=== PATIENT | female | born 1950 | race Caucasian/White ===

== ENCOUNTER 2020-10-25 16:23 | Emergency (ER) | payer MEDICAID, MEDICARE ==
[~2020-10-25] VITALS: Ht 162.6 cm; Wt 113.6 kg
[~2020-10-25 16:23] MED LIST: FURO-150 PO
[2020-10-25 17:37] LABS: BASOPHILS # (AUTO) 0.1 X10'3 (0-0.2); BASOPHILS % (AUTO) 0.9 % (0-1); EOSINOPHILS # (AUTO) 0.1 X10'3 (0-0.9); EOSINOPHILS % (AUTO) 2.1 % (0-6); HEMATOCRIT 33.1 % (35.0-45.0); HEMOGLOBIN 10.8 g/dl (12.0-16.0); LYMPHOCYTES # (AUTO) 1.7 X10'3 (1.1-4.8); LYMPHOCYTES % (AUTO) 25.2 % (21-51); MEAN CORPUSCULAR HEMOGLOBIN 28.1 PG (27.0-31.0); MEAN CORPUSCULAR HGB CONC 32.8 g/dL (33.0-36.5); MEAN CORPUSCULAR VOLUME 85.7 FL (78-98); MEAN PLATELET VOLUME 7.2 FL (7.4-10.4); MONOCYTES # (AUTO) 0.7 X10'3 (0-0.9); MONOCYTES % (AUTO) 10.7 % (2-12); NEUTROPHILS # (AUTO) 4.2 X10'3 (1.8-7.7); NEUTROPHILS % (AUTO) 61.1 % (42-75); PLATELET COUNT 302 X10'3 (140-440); RED BLOOD COUNT 3.86 X10'6 (4.20-5.60); RED CELL DISTRIBUTION WIDTH 15.7 % (11.5-14.5); WHITE BLOOD COUNT 6.9 X10'3 (4.5-11.0)
[2020-10-25 19:05] LABS: ALANINE AMINOTRANSFERASE 24 U/L (12-78); ALBUMIN 3.3 G/DL (3.4-5.0); ALBUMIN/GLOBULIN RATIO 0.9 (1.1-1.5); ALKALINE PHOSPHATASE 128 IU/L (46-116); ANION GAP 12 (8-16); ASPARTATE AMINO TRANSFERASE 18 U/L (10-37); BILIRUBIN,TOTAL 0.3 MG/DL (0.1-1.0); BLOOD UREA NITROGEN 17 MG/DL (7-18); BUN/CREATININE RATIO 13.6 (6.6-38.0); CALCIUM 9.3 MG/DL (8.5-10.1); CHLORIDE 102 MMOL/L (99-107); CREATININE 1.25 MG/DL (0.40-0.90); GLUCOSE 109 MG/DL (70-104); POTASSIUM 4.3 MMOL/L (3.5-5.1); SODIUM 137 MMOL/L (135-145); TOTAL CARBON DIOXIDE 23.4 MMOL/L (24-32); eGFR 42 ML/MIN
[2020-10-25] MEDS ORDERED: ipratropium/albuterol 3ml nebule IH PRN (21:20)
[2020-10-25] MEDS ORDERED: furosemide 10 MG/1 ML 10ml inj IV ONE (22:00)
[2020-10-25] MEDS ORDERED: furosemide 40mg/4ml inj IV ONE (22:10)
[2020-10-25 22:32] VITALS: BP 193/90
== END 2020-10-25 23:44 | disposition home or self-care (01) ==
LOC: ER 16:24
DX: R06.02 Shortness of breath (principal); R06.2 Wheezing; R07.89 Other chest pain; I48.91 Unspecified atrial fibrillation; I50.9 Heart failure, unspecified; Z87.891 Personal history of nicotine dependence; Z88.0 Allergy status to penicillin; Z79.899 Other long term (current) drug therapy
CPT/HCPCS: 36415; 71045; 80053; 83880; 84484; 85025; 93005; 96374; 99285; J1940; 99284

== ENCOUNTER 2021-02-26 08:41 | Day surgery (SDC) | payer MEDICARE, MEDICAID ==
[2021-02-26] VITALS (12 sets, daily range): BP systolic 117–193; BP diastolic 54–115
[~2021-02-26] VITALS: Ht 162.6 cm; Wt 114.1 kg
[2021-02-26] MEDS ORDERED: normal saline 1000ml 1,000 ML IV SCH (09:20)
[2021-02-26] MEDS ORDERED: fentaNYL/PF 50MCG/1 ML 2ML syringe ONE (10:13)
[2021-02-26] MEDS ORDERED: midazolam 1 mg/ML 2ml injection ONE (10:13)
[2021-02-26] MEDS ORDERED: VALA100031 PO (12:00)
[2021-02-26] MEDS ORDERED: OMEP-50 PO (12:00)
[2021-02-26] MEDS ORDERED: FEXO180T94 PO (12:00)
[2021-02-26] MEDS ORDERED: ALBU8.5H8 INH (12:00)
[2021-02-26] MEDS ORDERED: FURO-150 PO (12:00)
[2021-02-26] MEDS ORDERED: BUDE10.7 INH (12:00)
[2021-02-26] MEDS ORDERED: FLUT16SP2 BOTHNARES (12:00)
[2021-02-26] MEDS ORDERED: IBUP-1984 PO (12:00)
[2021-02-26] MEDS ORDERED: POTA20TA19 PO (12:00)
[2021-02-26] MEDS ORDERED: FLUO40CA10 PO (12:00)
[2021-02-26] MEDS ORDERED: APIX5TAB3 PO (12:00)
[2021-02-26] MEDS ORDERED: ATOR20TA10 PO (12:00)
[2021-02-26] MEDS ORDERED: DILT240C94 PO (12:00)
== END 2021-02-26 12:38 | disposition home or self-care (01) ==
LOC: SSTAY O 08:41
PROVIDERS: ATTEND Radiology Vascular & Interventional Radiology
DX: M89.8X8 Other specified disorders of bone, other site (principal); I48.91 Unspecified atrial fibrillation; J43.9 Emphysema, unspecified; I10 Essential (primary) hypertension; G89.29 Other chronic pain; E55.9 Vitamin D deficiency, unspecified; K21.9 Gastro-esophageal reflux disease without esophagitis; F32.9 Major depressive disorder, single episode, unspecified; F41.9 Anxiety disorder, unspecified; M19.90 Unspecified osteoarthritis, unspecified site; E78.5 Hyperlipidemia, unspecified; F17.210 Nicotine dependence, cigarettes, uncomplicated; Z88.8 Allergy status to other drugs, medicaments and biological substances; Z79.899 Other long term (current) drug therapy; Z87.01 Personal history of pneumonia (recurrent); Z80.0 Family history of malignant neoplasm of digestive organs
CPT/HCPCS: 20220; 77012; 99152; 99153; J2250; J3010; 88305